=== PATIENT | female | born 1975 | race Caucasian/White ===

== ENCOUNTER 2024-04-11 05:51 | Inpatient (IN) | payer OTHER ==
[~2024-04-11] VITALS: Ht 165.1 cm; Wt 56.7 kg
[2024-04-11 06:20] VITALS: BP 135/72; TEMP 97.7; O2SAT 100
[2024-04-11] MEDS ORDERED: ANESTHESIA TRAY IN PYXIS 1 EA TRAY MC ONE ×2 (06:59→13:11)
[2024-04-11] MEDS ORDERED: BUPIVACAINE 0.5 % PF 150 MG/30 ML VIAL ONE ×2 (07:01→15:31)
[2024-04-11] MEDS ORDERED: MIDAZOLAM HCL 2 MG/2ML VIAL ONE (07:03)
[2024-04-11] MEDS ORDERED: FENTANYL PF 100MCG/2ML AMPUL ONE ×2 (07:03→17:17)
[2024-04-11] MEDS ORDERED: LABETALOL HCL IV 100MG VIAL ONE (07:35)
[2024-04-11 07:57] LABS: PREGNANCY TEST URINE QUAL NEGATIVE (NEGATIVE)
[2024-04-11] MEDS ORDERED: CHOL100062 PO (08:19)
[2024-04-11] MEDS ORDERED: OXYC5TAB3 PO (08:19)
[2024-04-11] MEDS ORDERED: ONDA4TAB5 PO (08:19)
[2024-04-11] MEDS ORDERED: SIMV-49 PO (08:19)
[2024-04-11] MEDS ORDERED: Z GUARD REMEDY 4 OZ OINT TP PRN (13:30)
[2024-04-11] MEDS ORDERED: MAGNESIUM HYDROXIDE 30 ML UDC PO PRN (13:30)
[2024-04-11] MEDS ORDERED: MAG HYDROX/AL HYDROX/SIMETH 30 ML UDC PO PRN (13:30)
[2024-04-11] MEDS ORDERED: ACETAMINOPHEN 325 MG TABLET PO PRN (13:30)
[2024-04-11] MEDS ORDERED: ONDANSETRON HCL/PF 4 MG/2 ML VIAL IVP PRN ×2 (13:30→18:00)
[2024-04-11] MEDS ORDERED: MORPHINE SULFATE INJ 4 MG/ML DISP.SYRIN ONE (17:18)
[2024-04-11] MEDS ORDERED: MEPERIDINE HCL/PF 50 MG/ML DISP.SYRIN IV PRN (18:00)
[2024-04-11] MEDS ORDERED: FENTANYL PF 100MCG/2ML AMPUL IV PRN (18:00)
[2024-04-11] MEDS ORDERED: MORPHINE SULFATE INJ 10 MG/ML DISP.SYRIN IV PRN (18:00)
[2024-04-11] MEDS ORDERED: METOCLOPRAMIDE HCL 10 MG/2 ML VIAL IV PRN (18:00)
[2024-04-11] MEDS ORDERED: TRANEXAMIC ACID 1,000 MG/10 ML VIAL ONE (18:47)
[2024-04-11 20:00] VITALS: BP 125/69; TEMP 97.7; TEMP 98; O2SAT 100
[2024-04-11 20:30] VITALS: BP 115/68; TEMP 97.5; O2SAT 98
[2024-04-11 20:45] VITALS: BP 121/67; TEMP 97.9; O2SAT 98
[2024-04-11] MEDS ORDERED: CEFAZOLIN 1 GM VIAL IV SCH (21:00)
[2024-04-11 21:15] VITALS: BP 122/63; TEMP 98.2; O2SAT 81
[2024-04-11] MEDS: CEFAZOLIN 2 GM in IV D5W 100 ML IV SCH (21:16)
[2024-04-11 22:15] VITALS: BP 127/74; TEMP 97.7; O2SAT 98
[2024-04-11] MEDS: MORPHINE SULFATE INJ 4 MG/ML DISP.SYRIN IV PRN (23:01)
[2024-04-12 07:00] VITALS: BP 123/69; TEMP 98.6; O2SAT 100
[2024-04-12 07:04] LABS: BASOPHILS % (AUTO) 0.1 % (0.0-2.0); HEMATOCRIT 31 % (33-45); HEMOGLOBIN 11.1 g/dL (11.5-14.8); LYMPHOCYTES # (AUTO) 0.5 K/uL (0.8-4.8); LYMPHOCYTES % (AUTO) 4.7 % (20.0-44.0); MEAN CORPUSCULAR HEMOGLOBIN 31 PG (26.0-33.0); MEAN CORPUSCULAR HGB CONC 36 g/dl (31.0-36.0); MEAN CORPUSCULAR VOLUME 85 fL (82-100); MONOCYTES # (AUTO) 0.9 K/uL (0.1-1.30); MONOCYTES % (AUTO) 7.7 % (2.0-12.0); NEUTROPHILS # (AUTO) 9.6 K/uL (1.8-8.9); NEUTROPHILS % (AUTO) 87.5 % (43.0-81.0); PLATELET COUNT (AUTO) 138 K/uL (150-450); RED BLOOD CELL COUNT(AUTO) 3.65 MIL/uL (4.0-5.2); RED CELL DISTRIBUTION WIDTH 14.6 % (11.5-15.0)
[2024-04-12 07:50] LABS: CALCIUM, SERUM 8.2 mg/dL (8.5-10.1); CREATININE 0.8 mg/dL (0.6-1.3)
[2024-04-12] MEDS: oxyCODONE/APAP (5/325 MG) 1 UDTAB TABLET PO PRN (11:25)
[2024-04-12] MEDS ORDERED: ENOXAPARIN SODIUM 40 MG/0.4 ML DISP.SYRIN SQ SCH (20:00)
== END 2024-04-12 12:30 | disposition home or self-care (01) | DRG 313 ==
LOC: DS 05:51 → MED 06:01 → EDSTATUS 15:15
PROVIDERS: ADMIT Nurse Practitioner Family; ATTEND Nurse Practitioner Family
PROC: 0QSK04Z Reposition Left Fibula with Internal Fixation Device, Open Approach (ICD-10-PCS; principal; 2024-04-11)
PROC: 0QSH04Z Reposition Left Tibia with Internal Fixation Device, Open Approach (ICD-10-PCS; 2024-04-11)
DX: S82.892A Other fracture of left lower leg, initial encounter for closed fracture (principal); R26.9 Unspecified abnormalities of gait and mobility; Z79.899 Other long term (current) drug therapy; W19.XXXA Unspecified fall, initial encounter; W18.30XA Fall on same level, unspecified, initial encounter; Y92.9 Unspecified place or not applicable
CPT/HCPCS: 36415; 73610-TC; 80048-TC; 84702-TC; 84703-TC; 85025-TC; 97112-TC; 97116-TC; 97530-TC; A4223; A6253; G0378; J0330; J0690; J1100; J1885; J2250; J2270; J2405; J2704; J3010; J3490; J7030; J7060